=== PATIENT | female | born 1985 | race Asian ===

== ENCOUNTER 2021-10-29 13:38 | Emergency (ER) | payer MEDICAID ==
[~2021-10-29] VITALS: Ht 154.9 cm; Wt 61.4 kg
[2021-10-29] MEDS: MethylPREDNISolone SOD SUCC 125 MG/2 ML VIAL IM ONE (14:26)
[2021-10-29] MEDS: HydrOXYzine HCL 50 MG TABLET PO ONE (14:27)
[2021-10-29 14:37] LABS: BASOPHILS % (AUTO) 0.9 % (0.0-2.0); EOSINOPHILS % (AUTO) 3.7 % (1.0-6.0); HEMATOCRIT 44.7 % (36-46); HEMOGLOBIN 14.9 g/dL (12.0-16.0); LYMPHOCYTES # (AUTO) 1.7 K/uL (1.0-4.8); LYMPHOCYTES % (AUTO) 19.1 % (22.0-44.0); MEAN CORPUSCULAR HEMOGLOBIN 28.9 pg (26.0-34.0); MEAN CORPUSCULAR HGB CONC 33.4 G/dL (31.0-37.0); MEAN CORPUSCULAR VOLUME 87 fL (80-100); MONOCYTES # (AUTO) 0.6 K/uL (0.1-1.0); MONOCYTES % (AUTO) 6.8 % (2.0-9.0); NEUTROPHILS # (AUTO) 6.2 K/uL (1.8-7.7); NEUTROPHILS % (AUTO) 69.5 % (40.0-70.0); PLATELET COUNT (AUTO) 253 K/uL (150-450); RED BLOOD CELL COUNT(AUTO) 5.17 MIL/uL (4.00-5.20); RED CELL DISTRIBUTION WIDTH 12.1 % (11.5-14.5)
[2021-10-29 14:45] LABS: ANION GAP 8 mmol/L (8-16); CALCIUM, TOTAL 8.6 mg/dL (8.8-10.5); CARBON DIOXIDE 24 mmol/L (22-29); CHLORIDE 104 mmol/L (98-107); CREATININE 0.73 mg/dL (0.60-1.30); GLUCOSE,RANDOM 108 mg/dL (70-110); POTASSIUM 3.5 mmol/L (3.5-5.1); SODIUM SERUM 136 mmol/L (136-145); UREA NITROGEN, BLOOD 11 mg/dL (7-18)
[2021-10-29 14:49] LABS: GLOMERULAR FILTR. RATE CALC > 60 mL/min (>60)
[2021-10-29 14:55] LABS: ALANINE AMINOTRANSFERASE 25 U/L (12-78); ALBUMIN 3.8 g/dL (3.4-5.0); ALKALINE PHOSPHATASE 50 U/L (46-116); ASPARTATE AMINOTRANSFERASE 16 U/L (15-37); BILIRUBIN,TOTAL 0.4 mg/dL (0.1-1.0); TOTAL PROTEIN, SERUM 7.8 g/dL (6.4-8.2)
[2021-10-29] MEDS ORDERED: DOXY-354 PO (15:36)
[2021-10-29] MEDS ORDERED: HYDR-4527 PO (15:36)
[2021-10-29] MEDS ORDERED: CLOB15CR10 TP (15:36)
[2021-10-29] MEDS ORDERED: IBUP-1554 PO (15:36)
[2021-10-29] MEDS ORDERED: PRED-554 PO (15:36)
[2021-10-29 15:46] VITALS: BP 126/67
== END 2021-10-29 16:14 | disposition home or self-care (01) ==
LOC: EMS 13:39
DX: L30.9 Dermatitis, unspecified (principal); L03.116 Cellulitis of left lower limb; L03.221 Cellulitis of neck; L03.115 Cellulitis of right lower limb; M06.9 Rheumatoid arthritis, unspecified; Z87.2 Personal history of diseases of the skin and subcutaneous tissue
CPT/HCPCS: 36415; 80053; 84703; 85025; 86038; 86431; 96372; 99283; J2930